=== PATIENT | male | born 1970 | race Hispanic/Latino ===

== ENCOUNTER 2017-03-09 13:49 | Emergency (ER) | payer SELFPAY ==
[2017-03-09 14:56] VITALS: BP 136/88
[2017-03-09] MEDS ORDERED: TYLENOL PO ONE (14:57)
[2017-03-09] MEDS ORDERED: TYLENOL ONE (14:57)
== END 2017-03-10 01:29 | disposition left against medical advice (07) ==
LOC: ED 13:49
DX: M54.5 Low back pain (principal); Z53.21 Procedure and treatment not carried out due to patient leaving prior to being seen by health care provider

== ENCOUNTER 2020-05-21 11:11 | Outpatient (CLI) | payer OTHER ==
--- NOTE | 2020-05-21 12:03 | XRay Report ---
Cervical spine 4 views INDICATION: Neck pain FINDINGS: Endplate degenerative changes seen in the lower cervical spine. Uncovertebral degenerative changes seen throughout. Odontoid appears normal. Lumbar spine 3 views INDICATION: Back pain FINDINGS: Alignment appears normal. Endplate changes at L2-L3 with small anterior disc osteophyte. Fa cet changes at L4-5 and L5-S1. No compression fracture. Signer Name: Van Ty MD Signed: 05/21/2020 11:58 AM Workstation Name: [id number]
== END 2020-05-21 11:12 | disposition home or self-care (01) ==
LOC: EDBD 11:11 → XRAY 11:11
PROVIDERS: ATTEND Internal Medicine
DX: M47.817 Spondylosis without myelopathy or radiculopathy, lumbosacral region (principal); M25.78 Osteophyte, vertebrae; M47.812 Spondylosis without myelopathy or radiculopathy, cervical region; N28.1 Cyst of kidney, acquired
CPT/HCPCS: 72040; 72100